=== PATIENT | female | born 1985 | race Caucasian/White ===

== ENCOUNTER 2019-05-25 14:03 | Emergency (ER) | payer OTHER ==
[~2019-05-25] VITALS: Ht 165.1 cm; Wt 75.3 kg
[2019-05-25 14:13] VITALS: BP 111/59
--- NOTE | 2019-05-25 14:46 | NUR ---
33/F c/o anxiety for the past couple of days. Patient has been under stress at home. Pt AOX4. Patient denies any SI or HI. Patient is calm and relaxed while sitting in gurney.
[2019-05-25 14:50] VITALS: BP 111/59
--- NOTE | 2019-05-25 14:50 | NUR ---
Patient discharged with v/s stable. Written and verbal after care instructions given and explained. Patient alert, oriented and verbalized understanding of instructions. Ambulatory with steady gait. All questions addressed prior to discharge. ID band removed. Patient advised to follow up with PMD. Rx of REBECA given. Patient educated on indication of medication including possible reaction and side effects. Opportunity to ask questions provided and answered.
== END 2019-05-25 14:50 | disposition home or self-care (01) ==
LOC: MED 14:03
DX: F41.9 Anxiety disorder, unspecified (principal); G47.00 Insomnia, unspecified; F17.200 Nicotine dependence, unspecified, uncomplicated; Z98.890 Other specified postprocedural states; Z98.41 Cataract extraction status, right eye
CPT/HCPCS: 99283; 99284

== ENCOUNTER 2019-08-27 12:48 | Emergency (ER) | payer OTHER ==
[~2019-08-27] VITALS: Ht 165.1 cm; Wt 78.9 kg
[2019-08-27 12:58] VITALS: BP 127/75
--- NOTE | 2019-08-27 13:09 | NUR ---
PT C/O PRODUTIVE COUGH W/ SLIGHT WHITE PHLEGM, SOB, AND SUBJECTIVE FEVER, TEMPORAL SAAB, VOMITING X2 TIMES, AND CHEST DISCOMFORT. PT REPORTS BEING A CURRENT SMOKER. DENIES OTHER PMH. PATIENT STATES PAIN OF 2/10 AT THIS TIME; VSS; PATIENT POSITIONED FOR COMFORT; HOB ELEVATED; BEDRAILS UP X1; BED DOWN. ER MD MADE AWARE OF PT STATUS.
[2019-08-27 15:14] VITALS: BP 115/68
--- NOTE | 2019-08-27 15:14 | NUR ---
Patient discharged with v/s stable. Written and verbal after care instructions given and explained. Patient alert, oriented and verbalized understanding of instructions. Ambulatory with steady gait. All questions addressed prior to discharge. ID band removed. Patient advised to follow up with PMD. Rx of Motrin and Premethazine given. Patient educated on indication of medication including possible reaction and side effects. Opportunity to ask questions provided and answered.
== END 2019-08-27 15:14 | disposition home or self-care (01) ==
LOC: MED 12:48
DX: J06.9 Acute upper respiratory infection, unspecified (principal)
CPT/HCPCS: 71045; 99283; Q0092

== ENCOUNTER 2021-01-12 17:51 | Emergency (ER) | payer OTHER ==
[~2021-01-12] VITALS: Ht 165.1 cm; Wt 80.3 kg
[2021-01-12 18:06] VITALS: BP 120/74
--- NOTE | 2021-01-12 19:30 | NUR ---
PT. AMBULATED TO BED 11 WITH EVEN AND STEADY GAIT
--- NOTE | 2021-01-12 19:30 | NUR ---
PT. IS A 35 Y/O FEMALE THAT CAME INTO ED WITH C/O OF SORE THROAT. PT. STATES THAT THE SORE THROAT STARTED IN THE MORNING AND HAS "ON AND OFF HEADACHES SINCE THIS MORNING." PT. RATES 0/10 ON THE PAIN SCALE AT THIS TIME. DENIES N/V/D AT THIS TIME; SKIN IS PINK/WARM/DRY; AAOX4 WITH EVEN AND STEADY GAIT; HR EVEN AND REGULAR; PT DENIES ANY FEVER, CP, SOB,AT THIS TIME; VSS; PATIENT POSITIONED FOR COMFORT; HOB ELEVATED; BEDRAILS UP X2; BED DOWN. ER MD MADE AWARE OF PT STATUS. PMH: DENIES ALLERGIES: NKA
--- NOTE | 2021-01-12 19:45 | NUR ---
YOCASTA GAMINO AT BEDSIDE FOR MEDICAL EXAMINATION
--- NOTE | 2021-01-12 19:47 | NUR ---
Michael roberts in [facility], [place] - 01/12/21 at [address] Solares examining patient.
--- NOTE | 2021-01-12 20:00 | NUR ---
brian and manuel completed and walked to lab
[2021-01-12 20:06] VITALS: BP 120/74
--- NOTE | 2021-01-12 20:06 | NUR ---
Patient discharged with v/s stable. Written and verbal after care instructions given and explained. Patient verbalized understanding. Ambulatory with steady gait. All questions addressed prior to discharge. Advised to follow up with PMD.
== END 2021-01-12 20:06 | disposition home or self-care (01) ==
LOC: MED 17:51
DX: J06.9 Acute upper respiratory infection, unspecified (principal); Z20.822 Contact with and (suspected) exposure to COVID-19
CPT/HCPCS: 87426; 99283; U0003

== ENCOUNTER 2022-01-29 16:14 | Emergency (ER) | payer OTHER ==
[~2022-01-29] VITALS: Ht 165.1 cm; Wt 79.9 kg
[2022-01-29 16:27] VITALS: BP 107/72
[2022-01-29] MEDS ORDERED: MECL-303 PO (17:37)
--- NOTE | 2022-01-29 18:53 | NUR ---
36/F PRESENTS TO ED WITH C/O INTERMITTENT EPISODES OF VERTIGO SINE THIS MORING. PATIENT REPORTS EPISODES ONLY LAST SECONDS, DENIES HEADACHE, VISION CHANGES, COUGH OR RECENT SICK CONTACTS.
--- NOTE | 2022-01-29 18:54 | NUR ---
Patient discharged with v/s stable. Written and verbal after care instructions ABOUT BENIGN POSITIONAL VERTIGO given and explained. Patient alert, oriented and verbalized understanding of instructions. Ambulatory with steady gait. All questions addressed prior to discharge. ID band removed. Patient advised to follow up with PMD. Rx of MECLIZINE given. Patient educated on indication of medication including possible reaction and side effects. Opportunity to ask questions provided and answered.
== END 2022-01-29 18:54 | disposition home or self-care (01) ==
LOC: MED 16:14
DX: H81.10 Benign paroxysmal vertigo, unspecified ear (principal)
CPT/HCPCS: 99282